=== PATIENT | female | born 1990 | race African-American/Black ===

== ENCOUNTER 2020-07-24 20:01 | Emergency (ER) | payer OTHER ==
[~2020-07-24] VITALS: Ht 154.9 cm; Wt 68.2 kg
[2020-07-24 22:44] VITALS: BP 118/64
== END 2020-07-24 23:59 | disposition home or self-care (01) ==
LOC: EMS 20:01
DX: L03.012 Cellulitis of left finger (principal)
CPT/HCPCS: 99283